=== PATIENT | male | born 1960 | race Caucasian/White ===

== ENCOUNTER → 2016-05-29 | Outpatient (CLI) | payer BC | LOC: GMA 10:43 | PROVIDERS: ATTEND Nurse Practitioner Family | DX: R53.83 Other fatigue (principal); E29.9 Testicular dysfunction, unspecified; Z12.5 Encounter for screening for malignant neoplasm of prostate ==

== ENCOUNTER → 2017-03-15 | Outpatient (CLI) | payer OTHER ==
--- NOTE | 2017-03-16 10:31 | RAD ---
EXAM DESCRIPTION: Hand,Right 3 Views CLINICAL HISTORY: PAIN COMPARISON: None Available. TECHNIQUE: AP, LATERAL, AND OBLIQUE FINDINGS: Three views of the right hand demonstrate normal mineralization with extensive vascular calcification at the level of the wrist noted. Advanced degenerative changes involving the index finger DIP joint is noted. Mild hypertrophic changes at the margin of the third metacarpal head is also noted. Small periarticular erosions in several locations are nonspecific. Lack of periarticular demineralization suggests this does not represent an inflammatory arthropathy such is rheumatoid arthritis. Wrist appears intact and no occult fracture or dislocation is seen. IMPRESSION: 1. Localized degenerative changes in the index finger DIP joint and minimally at the base of the thumb with mild multilocation periarticular erosions that are nonspecific but without the typical periarticular demineralization of an acute inflammatory arthropathy such as rheumatoid arthritis 2. Extensive vascular calcification involving the wrist. 3. No acute fracture or dislocation. Electronically signed by: Mihai France MD 03/16/2017 10:22 AM [facility]
--- NOTE | 2017-03-16 10:39 | RAD ---
EXAM DESCRIPTION: Hand,Left 3 Views CLINICAL HISTORY: PAIN COMPARISON: None Available. TECHNIQUE: AP, LATERAL, AND OBLIQUE FINDINGS: Three views of the left hand demonstrate moderate degenerative changes at the carpal metacarpal articulation at the base of the thumb and marked flexion of the fifth finger at the PIP joint, suggesting the finger is locked in this position or represents a trigger finger. The bones are well-mineralized. Advanced degenerative changes involving the index finger DIP joint seen on the opposite hand are not apparent on the left. A few small periarticular erosions are present but are nonspecific as noted on the opposite right side typical articular demineralization of rheumatoid arthritis or an inflammatory process is not apparent. Again significant vascular calcification at the level of the wrist is noted. IMPRESSION: 1. Normal mineralization with mild localized degenerative changes at the base of the thumb. 2. Marked flexion of the fifth finger PIP joint suggesting a trigger finger or the finger is locked in this position without dislocation or destructive process 3. Minimal periarticular erosions without periarticular demineralization to suggest an acute inflammatory process such as rheumatoid arthritis. Electronically signed by: Mihai France MD 03/16/2017 10:25 AM [facility]
== END | disposition home or self-care (01) ==
LOC: RAD 08:34
PROVIDERS: ATTEND Orthopaedic Surgery
DX: M79.641 Pain in right hand (principal); M79.642 Pain in left hand

== ENCOUNTER → 2017-04-17 | Outpatient (CLI) | payer OTHER | END | disposition home or self-care (01) | LOC: LAB.O 12:23 | PROVIDERS: ATTEND Orthopaedic Surgery | DX: Z01.818 Encounter for other preprocedural examination (principal) ==

== ENCOUNTER → 2017-04-25 | Day surgery (SDC) | payer OTHER ==
--- NOTE | 2017-04-24 20:39 | HP ---
CHIEF COMPLAINT: Right hand numbness. HISTORY OF PRESENT ILLNESS: Mr. Diaz is a 56 year-old male with a history of numbness in the hand. He had also developed some atrophy of the thenar eminence. Mr. Diaz's symptoms have begun to limit his activities and therefore he has requested operative intervention. After discussing the risks, benefits, and alternatives to operative therapy, he has given informed consent for carpal tunnel release. PAST SURGICAL HISTORY: 1. Lumbar surgery. CURRENT MEDICATIONS: 1. Atorvastatin. 2. Ramipril. 3. Metformin. 4. Aspirin. 5. Melatonin. ALLERGIES: NO KNOWN DRUG ALLERGIES. CODE STATUS: FULL CODE. IMMUNIZATIONS: Up to date. FAMILY HISTORY: None pertinent to today's complaints. SOCIAL HISTORY: He does not drink, smoke or use any illicit drugs. REVIEW OF SYSTEMS: Negative except as indicated in the History of Present Illness. PHYSICAL EXAMINATION: VITAL SIGNS: Blood pressure 139/90, pulse 83. Height 5' 8", weight 149. MENTAL STATUS: The patient is awake, alert, and is able to give a good history and participate in the physical. The patient is oriented to person, place and time. SKIN: Normal tone and turgor. MUSCULOSKELETAL: He has a positive carpal compression test and positive Tinel' s and Phalen's. He does have some paresthesias at rest and there is some thenar atrophy. He has obvious cord formation at the fourth digit with some dimpling of the skin. The left hand shows contractures. ASSESSMENT: 1. Carpal tunnel syndrome. 2. Dupuytren's contracture. PLAN: The plan at this point is for carpal tunnel release. We have discussed the risks, benefits, and alternatives to that and he has given informed consent for that. #[id number] [facility]
[~2017-04-25] MED LIST: BUPIVACAINE 0.25% INJ 30 ML VIAL INJ ONE; LACTATED RINGERS 1,000 ML ONE; LIDOCAINE 1% 50 ML VIAL INJ ONE; PROPOFOL 200 MG/20 ML VIAL IV ONE; SODIUM CHL 0.9% 100ML MINI-BAG 100 ML IVPB ONE; VANCOMYCIN HCL INJ 1,000 MG VIAL IVPB ONE; ceFAZolin SODIUM 1 GM VIAL ONE
[2017-04-25 13:02] VITALS: BP 155/86; TEMP 97.4; O2SAT 96
--- NOTE | 2017-04-26 11:22 | OP ---
DATE OF PROCEDURE: 04/25/17 PREOPERATIVE DIAGNOSIS: 1. Carpal tunnel syndrome. POSTOPERATIVE DIAGNOSIS: 1. Carpal tunnel syndrome. PROCEDURE: 1. Carpal tunnel release. SURGEON: Alexis Powell MD. W[employer] PL[employer] PUMP OPERATOR SUPERVISOR: Mahamed Vickers CST, SA-[place]ellen. ANESTHESIA: Local with sedation. COMPLICATIONS: None. FINDINGS: Thickened transverse carpal ligament. INDICATION: Mr. Diaz has a history of both pain and numbness in the wrist. He has carpal tunnel syndrome as proven by EMG. Because of the nature of his issues, he has requested operative intervention. After discussing the risks, benefits and alternatives to that, the patient has given informed consent for carpal tunnel release. PROCEDURE: The patient was brought to the Operating Room and placed in the supine position. Sedation was administered and local anesthetic was injected into the operative area under sterile conditions. After the injection of anesthetic, the arm was sterilely prepped and draped. A longitudinal incision was made directly overlying the transverse carpal ligament and blunt dissection was carried down to the ligament. The transverse carpal ligament was sharply transected along its length and a [place] elevator was used to ensure complete release of the ligament. Once release had been confirmed, the wound was thoroughly irrigated and the wound was closed with Nylon suture. A sterile dressing was placed and the patient was taken to the Day Surgery Unit. POSTOPERATIVE INSTRUCTIONS: The patient has been encouraged to do range of motion of the digits and will followup with us in two days. #[id number] [facility]
== END ==
LOC: AMB 05:54
PROVIDERS: ATTEND Orthopaedic Surgery
DX: G56.01 Carpal tunnel syndrome, right upper limb (principal); M72.0 Palmar fascial fibromatosis [Dupuytren]; E11.9 Type 2 diabetes mellitus without complications; Z79.84 Long term (current) use of oral hypoglycemic drugs; Z79.899 Other long term (current) drug therapy
CPT/HCPCS: 01810; 36416; 64721; 82948; J0690; J3370; J3490; J7050; J7120

== ENCOUNTER 2017-10-30 05:53 | Day surgery (SDC) | payer OTHER ==
--- NOTE | 2017-10-29 10:06 | HP ---
CHIEF COMPLAINT: Left hand fourth and fifth digit contracture. HISTORY OF PRESENT ILLNESS: Mr. Diaz is a 57-year-old male with a history of progressively worsening contractures of the fourth and fifth digits. He has no alcoholism in the family and states there is some family history associated with this. He has had a job which required quite a bit of activity with his hands. He is right handed. Because of progressively worsening situation, he has requested operative intervention. After discussing the risks, benefits and alternatives to that, the patient has given informed consent. PAST SURGICAL HISTORY: 1. Carpal tunnel release. 2. Lumbar fusion. MEDICATIONS: 1. Atorvastatin. 2. Ramipril. 3. Metformin. 4. Melatonin. ALLERGIES: NO KNOWN DRUG ALLERGIES. CODE STATUS: Full code. IMMUNIZATIONS: Up to date. FAMILY HISTORY: None pertinent to today's complaint. SOCIAL HISTORY: The patient does not drink, smoke or use any illicit drugs. REVIEW OF SYSTEMS: Negative except as indicated in the History of Present Illness. PHYSICAL EXAMINATION: VITAL SIGNS: Blood pressure 119/76. Pulse 80. Height 5'8". Weight 146. MENTAL STATUS: The patient is awake, alert, and is able to give a good history and participate in the physical. The patient is oriented to person, place and time. SKIN: Normal tone and turgor. MUSCULOSKELETAL: The hand is warm and well perfused. He does have a palpable cord in the thumb palmar aspect along the thenar eminence extending to the radial aspect of the thumb. He has a flexion contracture of about 90 degrees which is correctable to about 105 to 110 degrees at the fifth digit PIP. He has about 15 to 20 degree flexion contracture at the MCP. He has flexion contracture measuring about 100 degrees on the PIP of the fourth digit with about a 10 degree flexion contracture at the MCP. He does have palpable cords on the palmar aspect. Sensation is intact in those digits. ASSESSMENT: 1. Dupuytren's. PLAN: The plan at this point is for partial palmar fasciectomy. We have discussed the risks, benefits, and alternatives to that and the patient has given informed consent. #[id number] [facility]
[2017-10-30] MEDS ORDERED: ePHEDrine SULF 50 MG/ML ONE (07:00)
[2017-10-30] MEDS ORDERED: LIDOCAINE 1% 10 ML VIAL INJ ONE (07:00)
[2017-10-30] MEDS ORDERED: raNITIdine HCL INJ 25 MG/ML VIAL ONE (07:00)
[2017-10-30] MEDS ORDERED: ONDANSETRON INJ 4 MG/2 ML VIAL ONE ×2 (07:00→14:01)
[2017-10-30] MEDS ORDERED: PROPOFOL 200 MG/20 ML VIAL IV ONE (07:00)
[2017-10-30] MEDS ORDERED: METOCLOPRAMIDE HCL INJ 10 MG/2 ML VIAL ONE (07:00)
[2017-10-30] MEDS ORDERED: LIDOCAINE 1% 50 ML VIAL INJ ONE (07:59)
[2017-10-30] MEDS ORDERED: BUPIVACAINE 0.25% INJ 30 ML VIAL INJ ONE (07:59)
[2017-10-30] MEDS ORDERED: LACTATED RINGERS 1,000 ML ONE (08:55)
[2017-10-30] MEDS ORDERED: SODIUM CHL 0.9% 50ML MIN-BAG+ 50 ML IVPB ONE (08:55)
[2017-10-30] MEDS ORDERED: ceFAZolin SODIUM 1 GM VIAL ONE (08:56)
[2017-10-30] MEDS ORDERED: ROCURONIUM BROMIDE 10 MG/ML VIAL ONE (10:06)
[2017-10-30] MEDS ORDERED: fentaNYL CITRATE INJ 50 MCG/ML AMP ONE (10:06)
[2017-10-30] MEDS ORDERED: MIDAZOLAM INJ 2 MG/2 ML VIAL ONE (10:06)
[2017-10-30] MEDS: ceFAZolin SODIUM 1 GM VIAL ONE ×2 (10:54→13:00)
[2017-10-30] MEDS: VANCOMYCIN HCL INJ 1,000 MG VIAL IVPB ONE ×2 (10:54→13:00)
[2017-10-30] MEDS ORDERED: HYDROcodone 5MG/APAP 325MG 1 EA TAB ONE (14:51)
[2017-10-30 15:35] VITALS: BP 131/80; TEMP 97.8; O2SAT 98
--- NOTE | 2017-11-03 19:13 | OP ---
DATE OF PROCEDURE: 10/30/17 PREOPERATIVE DIAGNOSIS: 1. Dupuytren's contracture of the left hand affecting the first, fourth and fifth digits. POSTOPERATIVE DIAGNOSIS: 1. Dupuytren's contracture of the left hand affecting the first, fourth and fifth digits. PROCEDURE: 1. Partial fasciectomy. SURGEON: Alexis Powell M.D. ICT DEVELOPER: Mahamed Vickers CST, -C ANESTHESIA: General anesthesia. COMPLICATIONS: None. FINDINGS: Approximately 90 degree flexion contracture at the PIP joint of the fifth digit approximately 70 degrees at the fourth digit. Palpable cords in both of those digits. Palpable cord over the thenar eminence extending into the thumb. INDICATION FOR PROCEDURE: Mr. Diaz has a history of progressively worsening difficulty with range of motion of the digits. He has had some ongoing discomfort associated with this. Because of the limitations in range of motion and progressive nature of it, he has requested operative intervention. After discussing the risks, benefits, and alternatives to that, he has given informed consent. PROCEDURE: The patient was brought to the Operating Room and placed in the supine position. General anesthesia was induced and the patient's arm was sterilely prepped and draped. Attention was first focused on the fifth digit and a zig zag incision was made over the proximal phalanx extending proximally to the fifth metacarpal head. Dissection was carried down to the fibrous cord. Care was taken to protect the digital artery and nerve. After identification of the central cord, the fibrous diseased tissue was removed. At that point, I was able to fully extend the fifth digit. Attention was then focused on the fourth digit and a zig zag incision was made starting over the proximal phalanx extending proximal to the fourth metacarpal phalangeal joint. The digital arteries and nerves were identified and the diseased tissue appeared to be arising from a spiral band on the ulnar aspect. That was identified and transected with full extension of the digit being achieved. The diseased tissue was then removed. Attention was then focused on the first digit. An incision was made directly over the palpable cord and blunt dissection was carried down to that. The diseased tissue was then removed from there and a second incision was made over the proximal radial aspect of the proximal phalanx of the first digit. Once all of the diseased tissue was identified, it was removed. The wounds were all cleaned and the tourniquet was deflated. There was no active bleeding present. The wounds were closed with nylon suture taking care to protect all wound edges. Sterile dressings were placed with the patient placed in a splint and the fourth and fifth digits placed in full extension. He was awakened from anesthesia and taken to recovery. POSTOPERATIVE INSTRUCTIONS: He is going to begin range of motion and will be in a removable splint starting with his return to us on postoperative day 2. #[id number] [facility]
== END 2017-10-30 15:20 | disposition home or self-care (01) ==
LOC: AMB 05:53
PROVIDERS: ATTEND Orthopaedic Surgery
DX: M72.0 Palmar fascial fibromatosis [Dupuytren] (principal); I10 Essential (primary) hypertension; E11.9 Type 2 diabetes mellitus without complications; K21.9 Gastro-esophageal reflux disease without esophagitis; Z79.84 Long term (current) use of oral hypoglycemic drugs; Z79.899 Other long term (current) drug therapy
CPT/HCPCS: 01810; 26121; 36415; 36416; 80048; 82948; 85025; 87070; 93005; J0690; J2250; J2405; J2765; J2780; J3010; J3370; J3490; J7050; J7120

== ENCOUNTER → 2020-02-02 | Outpatient (CLI) | payer BC | LOC: GMAJ 11:10 | PROVIDERS: ATTEND Family Medicine | DX: I10 Essential (primary) hypertension (principal); E11.9 Type 2 diabetes mellitus without complications; E78.2 Mixed hyperlipidemia; Z13.29 Encounter for screening for other suspected endocrine disorder ==